=== PATIENT | male | born 1995 | race Caucasian/White ===

== ENCOUNTER 2019-10-31 19:17 | Emergency (ER) | payer OTHER ==
[~2019-10-31] VITALS: Ht 172.7 cm; Wt 137.8 kg
--- NOTE | 2019-10-31 19:25 | NUR ---
EKG IN PROGRESS.
--- NOTE | 2019-10-31 20:49 | NUR ---
PT RESTING ON GURNEY, MONITORS APPLIED, SIDERAIL SUP X2, CALL LIGHT WITHIN REACH. PA AT BEDSIDE FOR EVAL
[2019-10-31] MEDS ORDERED: FAMOTIDINE 20 MG TABLET ONE (20:57)
[2019-10-31] MEDS ORDERED: ONDANSETRON ODT 4 MG ONE (20:58)
[2019-10-31] MEDS ORDERED: MAALOX/HYOSCYAMINE/LIDOCAINE 45 ML BTL ONE (20:58)
[2019-10-31] MEDS ORDERED: ONDANSETRON ODT 4 MG PO ONE (21:00)
[2019-10-31] MEDS ORDERED: FAMOTIDINE 20 MG TABLET PO ONE (21:00)
[2019-10-31] MEDS ORDERED: MAALOX/HYOSCYAMINE/LIDOCAINE 45 ML BTL PO ONE (21:00)
--- NOTE | 2019-10-31 21:01 | NUR ---
PT MEDICATED PER [facility]. AWAITING LABS
[2019-10-31 21:13] LABS: BASOPHILS # (AUTO) 0.04 x10^3/uL (0-0.1); BASOPHILS % (AUTO) 0 % (0-1); EOSINOPHILS % (AUTO) 0 % (1-7); LYMPHOCYTES # (AUTO) 1.49 x10^3/uL (1-3.4); LYMPHOCYTES % (AUTO) 11 % (22-44); MD NO; MEAN CORPUSCULAR HEMOGLOBIN 31.2 pg (27.5-34.5); MEAN CORPUSCULAR HGB CONC 34.3 g/dL (33.2-36.2); MEAN CORPUSCULAR VOLUME 90.9 fL (81-97); MEAN PLATELET VOLUME 8.2 fL (7.4-10.4); MONOCYTES # (AUTO) 0.71 x10^3/uL (0.2-0.8); MONOCYTES % (AUTO) 5 % (2-9); NEUTROPHILS # (AUTO) 10.81 x10^3/uL (1.8-6.8); NEUTROPHILS % (AUTO) 83 % (42-75); PLATELET COUNT 261 x10^3/uL (130-400); RED BLOOD COUNT 4.97 x10^6/uL (4.38-5.82)
[2019-10-31 21:18] LABS: ALANINE AMINOTRANSFERASE 37 U/L (12-78); ALBUMIN 3.8 g/dL (3.4-5.0); ANION GAP 7 mmol/L (5-15); CALCIUM 9.4 mg/dL (8.5-10.1); CHLORIDE 105 mmol/L (98-107); CREATININE 0.92 mg/dL (0.7-1.3)
[2019-10-31 21:20] LABS: ALKALINE PHOSPHATASE 108 U/L (45-117); BILIRUBIN,TOTAL 0.5 mg/dL (0.2-1.0); TOTAL PROTEIN 7.6 g/dL (6.4-8.2)
[2019-10-31 21:57] VITALS: BP 118/90
== END 2019-10-31 22:24 | disposition home or self-care (01) ==
LOC: ED 22:10
DX: K80.20 Calculus of gallbladder without cholecystitis without obstruction (principal); R10.12 Left upper quadrant pain; R10.11 Right upper quadrant pain; R10.13 Epigastric pain; R11.0 Nausea; R06.02 Shortness of breath
CPT/HCPCS: 36415; 76700; 80053; 83690; 85025; 93005; 99285; Q0162